=== PATIENT | male | born 1985 | race Caucasian/White ===

== ENCOUNTER 2019-06-01 10:45 | Outpatient (CLI) | payer OTHER, SELFPAY ==
--- NOTE | 2019-06-01 | ECG_ITS ---
Measurements Intervals [place] Rate: 60 P: 73 IN: 176 QRS: 69 QRSD: 93 T: 62 QT: 403 QTc: 404 Interpretive Statements SINUS RHYTHM NONSPECIFIC ST ELEVATION- DIFFUSE LEADS BASELINE ARTIFACT- I, II, III, AVR, AVL BORDERLINE ECG Electronically Signed On 06-01-2019 11:41:58 [employer] by Clarke Guillory D.O.
== END 2019-06-01 10:46 | disposition home or self-care (01) ==
PROVIDERS: PCP Nurse Practitioner
DX: F11.20 Opioid dependence, uncomplicated (principal); R94.31 Abnormal electrocardiogram [ECG] [EKG]
CPT/HCPCS: 93005